=== PATIENT | female | born 1965 | race African-American/Black ===

== ENCOUNTER 2016-06-29 16:47 | Emergency (ER) | payer OTHER ==
[~2016-06-29] VITALS: Ht 170.2 cm; Wt 100.7 kg
[2016-06-29] MEDS ORDERED: GLUC500C5 PO (17:01)
[2016-06-29] MEDS ORDERED: VITA100L PO (17:01)
[2016-06-29] MEDS ORDERED: PROC10CA PO (17:01)
[2016-06-29] MEDS ORDERED: NEXI40CA PO (17:01)
[2016-06-29] MEDS ORDERED: LISI-538 PO (17:01)
[2016-06-29] MEDS ORDERED: IPRATROPIUM 0.5MG/ALBUTEROL 2.5MG INH SOL UD 3ML (DUONEB)(J7620) NEB ONE (18:00)
[2016-06-29 18:26] LABS: BASO # 0.1 K/mm3 (0.0-0.2); EOS # 0.3 K/mm3 (0.0-0.50); EOS % 3.9 % (0.0-3.0); LARGE UNSTAINED CELL # 0.1 K/mm3 (0.0-0.4); LARGE UNSTAINED CELL % 1.7 % (0.0-4.0); LYMPH # 3.8 K/mm3 (1.5-4.5); LYMPH % 50.3 % (24.0-44.0); MEAN CORPUSCULAR VOLUME 96.9 fl (80.0-96.0); MONO # 0.3 K/mm3 (0.0-0.8); MONO % 4.5 % (0.0-5.0); NEUTROPHILS # 2.8 K/mm3 (1.8-7.7); NEUTROPHILS % 38.5 % (36.0-66.0); PLATELET COUNT, AUTOMATED 223 k/mm3 (150-450); WHITE BLOOD COUNT 7.2 K/mm3 (4.0-10.0)
[2016-06-29 18:36] LABS: ANION GAP 7 MEQ/L (8-16); BLOOD UREA NITROGEN 9 MG/DL (7-18); CALCIUM LEVEL 8.4 MG/DL (8.5-10.1); CARBON DIOXIDE LEVEL 30 MEQ/L (21-32); CHLORIDE LEVEL 105 MEQ/L (98-107); CREATININE FOR GFR 0.92 MG/DL (0.55-1.02); GLOMERULAR FILTRATION RATE > 60.0 (>51); GLUCOSE, FASTING 103 MG/DL (70-105); POTASSIUM SERUM 3.5 MEQ/L (3.5-5.1); SODIUM LEVEL 142 MEQ/L (136-145)
[2016-06-29] MEDS ORDERED: ZITHTAB PO (19:11)
[2016-06-29] MEDS ORDERED: PRED20TA PO (19:11)
[2016-06-29] MEDS ORDERED: ALBU17IN2 INH (19:12)
[2016-06-29] MEDS ORDERED: predniSONE 10 MG TAB PO ONE (19:15)
[2016-06-29 19:19] VITALS: BP 169/97
--- NOTE | 2016-06-30 07:29 | REP ---
CHEST, TWO VIEWS: COMPARISON: 05/29/2015. There is no evidence of acute infiltrate. No pleural effusion is seen. The heart is normal in size. The mediastinal silhouette is unremarkable. The visualized osseous structures are intact. IMPRESSION: No acute pulmonary disease. Signed by Esau Portillo MD 06/30/2016 07:51 P
== END 2016-06-29 19:37 | disposition home or self-care (01) ==
LOC: M ED 17:30
DX: J20.9 Acute bronchitis, unspecified (principal); I10 Essential (primary) hypertension; F17.200 Nicotine dependence, unspecified, uncomplicated; Z79.899 Other long term (current) drug therapy

== ENCOUNTER 2016-08-16 15:04 | Emergency (ER) | payer OTHER, SELFPAY ==
[~2016-08-16] VITALS: Ht 170.2 cm; Wt 100.9 kg
[~2016-08-16 15:04] MED LIST: ALBU17IN2 INH; GLUC500C5 PO; LISI-538 PO; NEXI40CA PO; PRED20TA PO; PROC10CA PO; VITA100L PO; ZITHTAB PO
[2016-08-16] MEDS ORDERED: NS 1,000 ML IV SCH (15:31)
[2016-08-16] MEDS ORDERED: LABETALOL HCL 100 MG/20 ML VIAL IV STA ×3 (15:31→18:17)
[2016-08-16] MEDS ORDERED: METOPROLOL TART 50 MG TAB PO ONE (15:45)
[2016-08-16] MEDS ORDERED: ASPIRIN 81 MG CHEW TABLET PO ONE (15:45)
[2016-08-16] MEDS ORDERED: NITROGLYCERIN 0.4 MG SUBL TABLET SL PRN (15:45)
[2016-08-16 15:53] LABS: BASO # 0.1 K/mm3 (0.0-0.2); BASO % 0.9 % (0.0-1.0); EOS # 0.3 K/mm3 (0.0-0.50); EOS % 3.6 % (0.0-3.0); LARGE UNSTAINED CELL # 0.1 K/mm3 (0.0-0.4); LARGE UNSTAINED CELL % 1.4 % (0.0-4.0); LYMPH # 3.5 K/mm3 (1.5-4.5); LYMPH % 44.1 % (24.0-44.0); MEAN CORPUSCULAR HEMOGLOBIN 33.5 pg (27.0-33.0); MEAN CORPUSCULAR HGB CONC 34.8 g/dl (32.0-36.5); MEAN CORPUSCULAR VOLUME 96.2 fl (80.0-96.0); MONO # 0.4 K/mm3 (0.0-0.8); MONO % 4.6 % (0.0-5.0); NEUTROPHILS # 3.5 K/mm3 (1.8-7.7); NEUTROPHILS % 45.4 % (36.0-66.0); PLATELET COUNT, AUTOMATED 192 k/mm3 (150-450); WHITE BLOOD COUNT 7.8 K/mm3 (4.0-10.0)
[2016-08-16 16:02] LABS: INR 1.07
[2016-08-16 16:23] LABS: ALBUMIN 3.5 GM/DL (3.2-5.2); ALBUMIN/GLOBULIN RATIO 0.95 (1.00-1.93); ALKALINE PHOSPHATASE 111 U/L (45-117); ANION GAP 6 MEQ/L (8-16); BILIRUBIN,DIRECT < 0.1 MG/DL (0.0-0.2); BILIRUBIN,TOTAL 0.2 MG/DL (0.2-1.0); BLOOD UREA NITROGEN 10 MG/DL (7-18); CALCIUM LEVEL 8.5 MG/DL (8.5-10.1); CARBON DIOXIDE LEVEL 29 MEQ/L (21-32); CHLORIDE LEVEL 108 MEQ/L (98-107); CREATININE FOR GFR 0.85 MG/DL (0.55-1.02); GLOMERULAR FILTRATION RATE > 60.0 (>51); GLUCOSE, FASTING 105 MG/DL (70-105); POTASSIUM SERUM 3.6 MEQ/L (3.5-5.1); SODIUM LEVEL 143 MEQ/L (136-145); TOTAL PROTEIN 7.2 GM/DL (6.4-8.2)
--- NOTE | 2016-08-16 16:34 | REP ---
Clinical: Headache and chest pain . Comparison: None . Findings: The ventricles, sulci, and cisterns are normal in position and appearance. Portillo-white differentiation is maintained. No acute intracranial hemorrhage, mass/mass effect, pathology or trauma/injury. No evidence for acute infarction. No extra-axial fluid collection. Calvarium is intact. Paranasal sinuses and mastoid air cells are clear. Impression: Normal noncontrast head CT. No evidence for acute intracranial pathology or trauma/injury. Signed by Bob Bowers MD 08/16/2016 04:25 P
--- NOTE | 2016-08-16 16:34 | REP ---
Clinical: Chest pain . Comparison: 06/29/2016 . Findings: The mediastinum and cardiac silhouette are stable and within normal limits for portable technique. The lung chen are clear without acute consolidation, effusion, or pneumothorax. Skeletal structures are intact. Impression: No acute cardiopulmonary process appreciated. Signed by Bob Bowers MD 08/16/2016 04:25 P
[2016-08-16 16:35] LABS: ALT/SGPT 20 U/L (12-78); AST/SGOT 10 U/L (15-37)
[2016-08-16 18:01] LABS: METHADONE URINE NEGATIVE (NEGATIVE)
[2016-08-16] MEDS ORDERED: FUROSEMIDE 40 MG/4 ML VIAL (J1940) IV ONE (18:30)
[2016-08-16 18:32] VITALS: BP 168/96
[2016-08-16 19:10] VITALS: BP 173/100
--- NOTE | 2016-08-17 07:22 | ECGEPIP ---
Stationary ECG Study [facility] - ED Test Date: 2016-08-16 Pat Name: SLOANE CLAROS Department: Room: - Gender: F Safety Consultant: DuranB: 1965 Requested By: Marilee Barrios Order Number: [id number] Reading MD: Marilee Barrios Measurements Intervals [place] Rate: 80 P: 38 MT: 150 QRS: 50 QRSD: 87 T: 64 QT: 385 QTc: 446 Interpretive Statements SINUS RHYTHM NSTTW ABNORMALITY INCREASED RATE 08/25/15 Electronically Signed On 08-17-2016 7:22:33 EDT by Marilee aBrrios
== END 2016-08-16 19:15 | disposition left against medical advice (07) ==
LOC: M ED 15:04
DX: I16.0 Hypertensive urgency (principal); I11.9 Hypertensive heart disease without heart failure; K21.9 Gastro-esophageal reflux disease without esophagitis; F17.200 Nicotine dependence, unspecified, uncomplicated; Z79.899 Other long term (current) drug therapy
CPT/HCPCS: 70450; 71020; 80048; 80076; 80307; 82550; 82553; 83690; 85025; 85610; 93005; 93041; 94760; 96361; 96374; 96375; 96376; 99285; G0480; J1940

== ENCOUNTER 2017-01-31 11:05 | Emergency (ER) | payer SELFPAY ==
[~2017-01-31] VITALS: Ht 167.6 cm; Wt 101.6 kg
[2017-01-31] MEDS ORDERED: ALBU83IN (11:11)
[2017-01-31 11:59] LABS: MUCUS, URINE RFX SMALL (NEGATIVE); SQUAM EPITHELIAL CELL UR AURFX 1 /HPF (0-6)
[2017-01-31] MEDS ORDERED: NS 1,000 ML IV ONE (12:00)
[2017-01-31] MEDS ORDERED: MORPHINE 4 MG/ML 1ML SYRINGE IV ONE (12:15)
[2017-01-31 12:28] LABS: BASO # 0.1 10^3/uL (0.0-0.2); BASO % 0.6 % (0.0-1.0); EOS # 0.1 10^3/uL (0.0-0.50); EOS % 0.9 % (0.0-3.0); IMMATURE GRANULOCYTE % 0.5 % (0-0); LYMPH # 2.7 10^3/uL (1.5-4.5); LYMPH % 25.3 % (24.0-44.0); MEAN CORPUSCULAR HGB CONC 34.1 g/dl (32.0-36.5); MEAN CORPUSCULAR VOLUME 93.9 fl (80.0-96.0); MONO # 1.1 10^3/uL (0.0-0.8); MONO % 10.1 % (0.0-5.0); NEUTROPHILS # 6.6 10^3/uL (1.8-7.7); NEUTROPHILS % 62.6 % (36.0-66.0); PLATELET COUNT, AUTOMATED 219 10^3/uL (150-450); RED CELL DISTRIBUTION WIDTH 13.3 % (11.5-14.5); WHITE BLOOD COUNT 10.5 10^3/uL (4.0-10.0)
[2017-01-31 12:46] LABS: ALBUMIN 3.7 GM/DL (3.2-5.2); ALKALINE PHOSPHATASE 123 U/L (45-117); ALT/SGPT 18 U/L (12-78); ANION GAP 5 MEQ/L (8-16); AST/SGOT 13 U/L (7-37); BILIRUBIN,TOTAL 0.6 MG/DL (0.2-1.0); BLOOD UREA NITROGEN 12 MG/DL (7-18); CALCIUM LEVEL 8.9 MG/DL (8.5-10.1); CARBON DIOXIDE LEVEL 30 MEQ/L (21-32); CHLORIDE LEVEL 105 MEQ/L (98-107); CREATININE FOR GFR 0.87 MG/DL (0.55-1.02); GLOMERULAR FILTRATION RATE > 60.0 (>51); GLUCOSE, FASTING 109 MG/DL (70-105); POTASSIUM SERUM 3.9 MEQ/L (3.5-5.1); SODIUM LEVEL 140 MEQ/L (136-145); TOTAL PROTEIN 7.8 GM/DL (6.4-8.2)
--- NOTE | 2017-01-31 13:05 | REP ---
CT ABDOMEN/PELVIS WITHOUT IV CONTRAST: CT abdomen/pelvis is performed without oral or IV contrast. Sagittal and coronal reconstruction images are performed. There is minimal scarring in the visualized lung bases without evidence of acute infiltrate. Liver, gallbladder, spleen, and adrenals are grossly unremarkable. There is a small cystic structure in the pancreatic head, which has remained stable since at least a prior CT of the chest, 08/25/2015. This measures 1.2 cm in diameter. There is a cyst again noted in the lower pole of the right kidney and another seen in the upper pole of the left kidney. There is an intrarenal calculus in the upper pole of the right kidney 9 x 5 mm. There is no hydronephrosis bilaterally. There is mild perinephric and proximal periureteral stranding of fat on the right which may represent edema from a recently passed stone, or could indicate pyelonephritis. Ureters are not dilated. Mildly enlarged lymph node in the right lower quadrant mesentery measures 1.4 cm in short axis. There is no other evidence of adenopathy. There is mild atherosclerotic calcification of the abdominal aorta without aneurysm. There is no free air or free fluid. I see no bowel wall thickening. The appendix is normal. I see no pelvic mass. There are degenerative changes of the spine. There is spondylolysis of L5 with minimal anterior grade 1 spondylolisthesis of L5 on S1. IMPRESSION: Intrarenal calculus upper pole right kidney 9 x 5 mm. No hydronephrosis bilaterally. There does appear to be mild perinephric stranding of fat as well as stranding in the periureteral fat proximally on the right suggesting possibly a recently passed stone versus pyelonephritis. Mildly enlarged right lower quadrant mesenteric lymph node 1.4 cm. Stable cyst pancreatic head 1.2 cm in diameter. Signed by Esau Portillo MD 01/31/2017 05:00 P
[2017-01-31] MEDS ORDERED: KETOROLAC 30 MG/ML VIAL (J1885) IV ONE (13:15)
[2017-01-31] MEDS ORDERED: PERC5TAB12 PO (13:17)
[2017-01-31] MEDS ORDERED: CIPR-249 PO (13:17)
[2017-01-31] MEDS ORDERED: FLOM5CAP PO (13:17)
[2017-01-31 13:30] VITALS: BP 151/98
== END 2017-01-31 13:38 | disposition home or self-care (01) ==
LOC: M ED 11:05
DX: N10 Acute pyelonephritis (principal); N20.1 Calculus of ureter; J45.909 Unspecified asthma, uncomplicated; Z79.2 Long term (current) use of antibiotics; Z87.442 Personal history of urinary calculi; Z83.49 Family history of other endocrine, nutritional and metabolic diseases
CPT/HCPCS: 74176; 80053; 81001; 85025; 87088; 87186; 96374; 96375; 99284; J1885

== ENCOUNTER 2018-12-08 12:48 | Emergency (ER) | payer BC, SELFPAY ==
[~2018-12-08 12:48] MED LIST changes: +ALBU83IN; +CIPR-249 PO; +FLOM0.4C39 PO; +PERC5TAB12 PO
[2018-12-08] MEDS ORDERED: KETOROLAC 30 MG/ML VIAL (J1885) IV ONE (13:15)
[2018-12-08] MEDS ORDERED: ONDANSETRON 4MG/2ML VIAL (J2405) IV ONE (13:15)
[2018-12-08] MEDS ORDERED: ACETAMINOPHEN 500 MG TAB PO ONE (13:15)
[2018-12-08] MEDS ORDERED: NS 1,000 ML IV ONE (13:15)
[2018-12-08 13:43] LABS: BASO # 0.1 10^3/uL (0.0-0.2); BASO % 0.4 % (0.0-1.0); EOS % 0.1 % (0.0-3.0); HEMATOCRIT 43.5 % (36.0-47.0); HEMOGLOBIN 14.8 g/dl (12.0-15.5); LYMPH # 1.6 10^3/uL (1.5-5.0); LYMPH % 11.3 % (24.0-44.0); MEAN CORPUSCULAR HEMOGLOBIN 33.6 pg (27.0-33.0); MEAN CORPUSCULAR VOLUME 98.9 fl (80.0-96.0); MONO # 0.9 10^3/uL (0.0-0.8); MONO % 6.4 % (0.0-5.0); NEUTROPHILS # 11.2 10^3/uL (1.5-8.5); NEUTROPHILS % 81.4 % (36.0-66.0); PLATELET COUNT, AUTOMATED 172 10^3/uL (150-450); WHITE BLOOD COUNT 13.8 10^3/uL (4.0-10.0)
[2018-12-08 14:16] LABS: ALBUMIN 3.4 GM/DL (3.2-5.2); ALT/SGPT 22 U/L (12-78); BILIRUBIN,DIRECT 0.3 MG/DL (0.0-0.2); BILIRUBIN,TOTAL 0.8 MG/DL (0.2-1.0); BLOOD UREA NITROGEN 10 MG/DL (7-18); CALCIUM LEVEL 8.4 MG/DL (8.5-10.1); CARBON DIOXIDE LEVEL 30 MEQ/L (21-32); CHLORIDE LEVEL 103 MEQ/L (98-107); CREATININE FOR GFR 0.96 MG/DL (0.55-1.30); GLOMERULAR FILTRATION RATE > 60.0 (>51); GLUCOSE, FASTING 113 MG/DL (70-100); LIPASE 44 U/L (73-393); POTASSIUM SERUM 3.7 MEQ/L (3.5-5.1); SODIUM LEVEL 138 MEQ/L (136-145); TOTAL PROTEIN 7.3 GM/DL (6.4-8.2)
[2018-12-08] MEDS ORDERED: ISOVUE-370 76% 100ML VIAL (Q9967) As Ordered ONE (14:31)
[2018-12-08] MEDS ORDERED: MORPHINE 4 MG/ML 1ML VIAL/SYRINGE (J2270) IV ONE (15:00)
[2018-12-08] MEDS ORDERED: CIPROFLOXACIN 400 MG in IV 1 EA IV ONE (15:45)
--- NOTE | 2018-12-08 16:09 | REP ---
CT ABDOMEN AND PELVIS WITH IV CONTRAST: TECHNIQUE: Axial contrast enhanced images from the lung bases to the pubic symphysis using 100 mL Isovue 370 intravenous contrast material with multiplanar reformations. COMPARISON: Noncontrast CT abdomen and pelvis 01/31/[address] angiogram chest 08/25/2015. No infiltrate is seen in the visualized lung bases. A few tiny cysts are seen in the liver. The spleen is normal in size with no intrinsic abnormality. The adrenals are unremarkable. There is a small hiatal hernia. Pancreas demonstrates a cyst in the head of the pancreas, 1.5 x 1.6 cm. On a prior CT of the chest on 08/25/2015, this measured 1.0 x 1.2 cm. Cortical calcification in the upper pole of the right kidney is again noted as seen on prior studies. There is a cyst in the lower pole of the right kidney and also in the upper pole of the left kidney. There is no hydronephrosis bilaterally. Left kidney demonstrates somewhat decreased enhancement, mild enlargement and perinephric stranding suggesting inflammatory change and pyelonephritis. There is mild scattered atherosclerotic calcification of the abdominal aorta without aneurysm. No adenopathy is seen in the periaortic region. However, in the right lower quadrant, there is a soft tissue mass probably representing an enlarged lymph node. This measures 1.7 x 2.2 cm. This was previously 1.4 x 1.[address] of 01/31/2017. No bowel wall thickening is seen. The appendix is normal. I see no pelvis mass. There is mild free fluid in the pelvis. There is no free air. Urinary bladder is not well distended and not well evaluated. IMPRESSION: Small hiatal hernia. There are findings suggesting left-sided pyelonephritis. No hydronephrosis bilaterally. Mild free fluid in the pelvis. There are cysts in the liver and kidneys. A cyst in the head of the pancreas has mildly increased in size when compared to the prior CT of the chest 08/25/2015, previously 1.0 x 1.2 cm and currently 1.5 x 1.6 cm. This cyst may be further evaluated with MRI of the pancreas with and without contrast. The right lower quadrant mass also requires followup and possibly biopsy. Electronically Signed by Esau Portillo MD 12/09/2018 12:29 P
[2018-12-08] MEDS ORDERED: CIPR-249 PO (17:29)
[2018-12-08] MEDS ORDERED: NORC1TAB7 PO (17:29)
[2018-12-08 17:37] VITALS: BP 140/89
--- NOTE | 2018-12-09 13:37 | ED PDOC ---
Post-Departure Follow-Up jose j pruitt faxed formal report of ct abd/p for fu Bi Sapp MD Dec 09, 2018 13:37
== END 2018-12-08 17:48 | disposition home or self-care (01) ==
LOC: M ED 12:48
DX: N10 Acute pyelonephritis (principal); N28.1 Cyst of kidney, acquired; K86.2 Cyst of pancreas; K76.89 Other specified diseases of liver; K44.9 Diaphragmatic hernia without obstruction or gangrene; K21.9 Gastro-esophageal reflux disease without esophagitis; F17.200 Nicotine dependence, unspecified, uncomplicated; I10 Essential (primary) hypertension; J45.909 Unspecified asthma, uncomplicated; Z79.899 Other long term (current) drug therapy; Z87.442 Personal history of urinary calculi
CPT/HCPCS: 74177; 80048; 80076; 81001; 83605; 83690; 85025; 87040; 87077; 87088; 87186; 96361; 96365; 96375; 99284; J0744; J1885; J2270; J2405; Q9967

== ENCOUNTER → 2019-01-12 | Outpatient (REF) | payer BC, MEDICAID ==
[~2019-01-12] MED LIST changes: +NORC1TAB7 PO
[2019-01-12 18:12] LABS: APPEARANCE, URINE CLEAR (CLEAR); BACTERIA, URINE AUTO NEGATIVE (NEGATIVE); BILIRUBIN, URINE AUTO NEGATIVE (NEGATIVE); BLOOD, URINE BLOOD 1+ (NEGATIVE); COLOR, URINE YELLOW (YELLOW); GLUCOSE, URINE (UA) AUTO NEGATIVE (NEGATIVE); KETONE, URINE AUTO TRACE mg/dL (NEGATIVE); LEUKOCYTE ESTERASE, URINE AUTO NEGATIVE (NEGATIVE); MUCUS, URINE SMALL (NEGATIVE); NITRITE, URINE AUTO NEGATIVE (NEGATIVE); PROTEIN, URINE AUTO NEGATIVE (NEGATIVE); RBC, URINE AUTO 3 /HPF (0-3); SPECIFIC GRAVITY URINE AUTO 1.015 (1.002-1.035); SQUAMOUS EPITHELIAL CELL UR AU 1 /HPF (0-6); UROBILINOGEN, URINE AUTO 0.2 mg/dL (0.0-2.0); WBC, URINE AUTO 1 /HPF (0-3)
== END ==
LOC: M SMT 17:14
PROVIDERS: ATTEND Nurse Practitioner Family
DX: N12 Tubulo-interstitial nephritis, not specified as acute or chronic (principal)

== ENCOUNTER → 2019-02-12 | Outpatient (CLI) | payer OTHER, BC ==
--- NOTE | 2019-02-15 11:04 | REP ---
Clinical: Right lower quadrant mass. Technique: Pre and postcontrast MRI of the pelvis using 19 ml ProHance gadolinium based contrast agent. Findings: Examination is severely limited due to motion artifact. The mass lesion in the right kacy pelvis anterior to the right psoas muscle measures approximately 2.4 by 1.7 cm and is otherwise nonspecific. Postcontrast images are nondiagnostic due to extensive motion. No significant ascites. Bladder and uterus/adnexa appear grossly normal. Impression: 1. Evaluation is significantly limited by motion artifact. 2. The mass lesion identified in the right kacy pelvis demonstrates similar morphology to findings on recent CT dated 12/08/2018. Differential diagnosis includes malignant mass and pathologic lymph node. Electronically Signed by Bob Bowers MD 02/15/2019 10:55 A
--- NOTE | 2019-02-15 11:04 | REP ---
Clinical: Pancreatic cystic lesion. Technique: Pre and postcontrast MRI sequencing of the abdomen using 19 ml ProHance gadolinium based contrast agent. Findings: Evaluation is somewhat limited due to motion artifact. A somewhat multilobulated 1.7 cm cyst is identified with in the head of the pancreas which appears relatively simple and without mural nodule, soft tissue component, or obvious enhancement. Cystic lesion is inseparable from the adjacent main pancreatic duct which may be secondary to mass effect rather than actual connection with the duct itself. Lesion appears relatively simple/benign on current examination. Liver, spleen, the remainder of the pancreas, gallbladder, and bilateral adrenal glands are normal. Kidneys demonstrate bilateral benign cysts with few thin nonenhancing septations. No further renal mass lesion or abnormality is identified. No evidence for ascites in the visualized abdomen. Visualized portions of the small large bowel are grossly unremarkable although evaluation is limited due to the above mentioned motion artifact. Impression: 1. 1.7 cm simple benign appearing cyst in the head of the pancreas. Follow-up and monitoring by CT or ultrasound may be warranted. 2. Bilateral benign appearing renal cysts. Electronically Signed by Bob Bowers MD 02/15/2019 10:55 A
== END ==
LOC: M PLARAD 12:57
PROVIDERS: ATTEND Surgery
DX: R93.5 Abnormal findings on diagnostic imaging of other abdominal regions, including retroperitoneum (principal); N28.1 Cyst of kidney, acquired; K86.2 Cyst of pancreas; R19.03 Right lower quadrant abdominal swelling, mass and lump

== ENCOUNTER → 2019-02-22 | Outpatient (REF) | payer OTHER ==
[2019-02-22 15:36] LABS: C REACTIVE PROTEIN QUANTITATIV 0.51 MG/DL (0.00-0.30); RHEUMATOID FACTOR QUANT < 10.0 IU/ML (<15.0); URIC ACID 6.3 MG/DL (2.6-6.0)
== END ==
LOC: M LABDRAW1 11:52
PROVIDERS: ATTEND Physician Assistant
DX: M43.16 Spondylolisthesis, lumbar region (principal)

== ENCOUNTER → 2020-04-11 | Outpatient (CLI) | payer OTHER ==
[~2020-04-11] MED LIST changes: +ISOVUE-370 76% 100ML VIAL As Ordered ONE; -LISI-538 PO; +LISI20TA33 PO
--- NOTE | 2020-04-11 13:42 | REPVR ---
PROCEDURE INFORMATION: Exam: CT Angiography Head With Contrast Exam date and time: 04/11/2020 12:25 PM Age: 55 years old Clinical indication: Condition or disease; Aneurysm, cerebral TECHNIQUE: Imaging protocol: Computed tomography angiography of the head with intravenous contrast. 3D rendering (Not supervised by radiologist): MIP and/or 3D reconstructed images were created by the technologist. Radiation optimization: All CT scans at this facility use at least one of these dose optimization techniques: automated exposure control; mA and/or kV adjustment per patient size (includes targeted exams where dose is matched to clinical indication); or iterative reconstruction. Contrast material: ISO 370; Contrast volume: 75 ml; Contrast route: INTRAVENOUS (IV); COMPARISON: CT Head without contrast 08/16/2016 4:09 PM FINDINGS: ANTERIOR CIRCULATION: Right internal carotid artery: Unremarkable. Intracranial segment is patent with no significant stenosis. No aneurysm. Right middle cerebral artery: Unremarkable. No occlusion or significant stenosis. No aneurysm. Right anterior cerebral artery: Unremarkable. No occlusion or significant stenosis. No aneurysm. 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 Left middle cerebral artery: Unremarkable. No occlusion or significant stenosis. No aneurysm. Left anterior cerebral artery: Unremarkable. No occlusion or significant stenosis. No aneurysm. POSTERIOR CIRCULATION: Right vertebral artery: Unremarkable. No occlusion or significant stenosis. No aneurysm. Left vertebral artery: Unremarkable. No occlusion or significant stenosis. No aneurysm. Basilar artery: Unremarkable. No occlusion or significant stenosis. No aneurysm. Right posterior cerebral artery: Unremarkable. No occlusion or significant stenosis. No aneurysm. Left posterior cerebral artery: Unremarkable. No occlusion or significant stenosis. No aneurysm. Brain: No definite mass, mass effect, or midline shift. Cerebral ventricles: No ventriculomegaly. Bones/joints: Unremarkable. No acute fracture. Soft tissues: Unremarkable. 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 Electronically signed by: Gianfranco Tirado On 04/11/2020 13:42:58 PM
== END ==
LOC: M RAD 12:08
PROVIDERS: ATTEND Neurological Surgery
DX: I67.1 Cerebral aneurysm, nonruptured (principal)
CPT/HCPCS: 70496; Q9967

== ENCOUNTER → 2021-04-04 | Outpatient (CLI) | payer OTHER ==
[~2021-04-04] MED LIST changes: -ISOVUE-370 76% 100ML VIAL As Ordered ONE
== END ==
LOC: M RAD 11:11
PROVIDERS: ATTEND Neurological Surgery
DX: I67.1 Cerebral aneurysm, nonruptured (principal)